=== PATIENT | female | born 1990 | race Hispanic/Latino ===

== ENCOUNTER 2019-01-19 06:14 | Emergency (ER) | payer OTHER ==
[2019-01-19 06:23] VITALS: BMI 221.2
[2019-01-19 06:39] VITALS: PULSE 76; RESP 18; O2SAT 100
[2019-01-19] MEDS ORDERED: Sodium Chloride 0.9% 1,000 ML IV STA (07:28)
--- NOTE | 2019-01-19 07:30 | ED PDOC ---
HPI: Abdomen Time Seen by Provider: 01/19/19 07:07 Chief Complaint (Nursing): Abdominal Pain Chief Complaint (Provider): Abdominal pain History Per: Patient History/Exam Limitations: no limitations Onset/Duration Of Symptoms: Days Outside of [place] travel?: No Current Symptoms Are (Timing): Still Present Location Of Pain/Discomfort: Diffuse, RLQ Quality Of Discomfort: Dull, "Pain" Associated Symptoms: denies: Fever, Chills, Nausea, Vomiting, Diarrhea, Urinary Symptoms Additional Complaint(s): 28yo female, otherwise well, comes to ER reporting abdominal pain x 3 days, i nitially bearable but now has become worse. She reports the pain is dull, constant and unchanged with movement/position. Patient denies any associated fever, chills, vomiting, diarrhea, urinary symptoms, vaginal bleeding, or other complaints. No medications taken for symptoms. PMD: In [facility] Last Menstral Period: Has IUD Past Medical History Reviewed: Historical Data, Nursing Documentation, Vital Signs Vital Signs: Last Vital Signs Temp 97.6 F 01/19/19 06:23 Pulse 76 01/19/19 06:23 Resp 18 01/19/19 06:23 BP 124/54 L 01/19/19 06:23 Pulse Ox 100 01/19/19 06:23 - Medical History PMH: No Chronic Diseases - Surgical History Surgical History: No Surg Hx - Family History Family History: States: No Known Family Hx - Home Medications Home Medications: Ambulatory Orders Medication Instructions Recorded Naproxen [Naprosyn] 500 mg PO BID PRN #15 tablet 01/19/19 - Allergies Allergies/Adverse Reactions: Allergies Allergy/AdvReac Type Severity Reaction Status Date / Time No Known Allergies Allergy Verified 01/19/19 06:23 Review of Systems ROS Statement: Except As Marked, All Systems Reviewed And Found Negative Constitutional: Negative for: Fever, Chills Gastrointestinal: Positive for: Abdominal Pain. Negative for: Nausea, Vomiting, Diarrhea Genitourinary Female: Negative for: Dysuria, Frequency, Hematuria, Vaginal Discharge, Vaginal Bleeding Physical Exam - Reviewed Nursing Documentation Reviewed: Yes Vital Signs Reviewed: Yes - Physical Exam Appears: Positive for: Non-toxic, No Acute Distress Head Exam: Positive for: ATRAUMATIC, NORMAL INSPECTION, NORMOCEPHALIC Skin: Positive for: Normal Color Eye Exam: Positive for: Normal appearance Neck: Positive for: Supple Cardiovascular/Chest: Positive for: Regular Rate, Rhythm. Negative for: Tachycardia Respiratory: Positive for: Normal Breath Sounds. Negative for: Respiratory Dis tress Gastrointestinal/Abdominal: Positive for: Soft, Tenderness (right lower quadrant tenderness). Negative for: Mass, Guarding, Rebound Back: Positive for: Normal Inspection. Negative for: L CVA Tenderness, R CVA Tenderness Extremity: Positive for: Normal ROM Neurological/Psych: Positive for: Awake, Alert, Normal Tone - Laboratory Results Result Diagrams: 01/19/19 07:49 01/19/19 07:49 - ECG O2 Sat by Pulse Oximetry: 100 (RA) Pulse Ox Interpretation: Normal Medical Decision Making Medical Decision Making: Impression: Abdominal pain, r/o appendicitis vs. ovarian cyst Plan: -- Labs -- Urinalysis -- CT Abdomen/Pelvis 1042 CT Abdomen/Pelvis FINDINGS: LOWER THORAX: Unremarkable. LIVER: Unremarkable. No gross lesion or ductal dilatation. GALLBLADDER AND BILE DUCTS: Unremarkable. PANCREAS: Unremarkable. No gross lesion or ductal dilatation. SPLEEN: Unremarkable. ADRENALS: Unremarkable. No mass. KIDNEYS AND URETERS: Unremarkable. No hydronephrosis. No solid mass. VASCULATURE: Unremarkable. No aortic aneurysm. No aortic atherosclerotic calcification or mural plaque present. BOWEL: Unremarkable. No obstruction. No gross mural thickening. APPENDIX: Not definitely identified. There is a small amount of fluid seen in the most inferior right pericolic gutter. However, this is of limited specificity particularly in light of the presence of fluid in the cul-de-sac as well. PERITONEUM: Minimal fluid in the cul-de-sac and in the inferior right pericolic gutter. No generalized ascites. LYMPH NODES: Unremarkable. No enlarged lymph nodes. BLADDER: Unremarkable. REPRODUCTIVE: Unremarkable uterus. Intrauterine device noted within the uterus. There is a cystic structure in the central posterior pelvis, posterior to the uterus, measuring 5.6 cm in diameter. Likely adnexal cyst. Correlate with pelvic ultrasound examination. BONES: No acute fracture. OTHER FINDINGS: None. IMPRESSION: No evidence of acute appendicitis. 5.6 cm cyst posterior to the uterus, in the midline. Likely adnexal cyst. Correlate with transvaginal pelvic ultrasound examination. Minimal fluid in the cul-de-sac. US transvaginal ordered to r/o adnexal cyst ScribeAttestation: Documented byDeanna Fleming, acting as a scribe for Cyndi Bess MD. Provider ScribeAttestation: All medical record entries made by the Scribe were at my direction and personally dictated by me. I have reviewed the chart and agree that the record accurately reflects my personal performance of the history, physical exam, medical decision making, and the department course for this patient. I have also personally directed, reviewed, and agree with the discharge instructions and disposition. Disposition - Clinical Impression Clinical Impression: Ovarian cyst - Disposition Referrals: Susan Cedillo [Outside] Kev Cedillo DO [Staff Provider] - Disposition: Routine/Home Disposition Time: 13:36 Condition: IMPROVED Prescriptions: Naproxen [Naprosyn] 500 mg PO BID PRN #15 tablet PRN Reason: Pain, Moderate (4-7) Instructions: Ovarian Cysts Forms: [employer] ([place])
[2019-01-19 08:06] LABS: BASO % 0.6 % (0.0-2.0); EOS # 0.2 K/uL (0.0-0.7); EOS % 3.8 % (0.0-4.0); HEMOGLOBIN 10.9 g/dL (12.0-16.0); LYMPH # 1.3 K/uL (1.0-4.3); LYMPH % 29.6 % (20.0-40.0); MEAN CELL VOLUME 91.6 fl (81.0-99.0); MEAN CORPUSCULAR HEMOGLOBIN 30.6 pg (27.0-31.0); MEAN CORPUSCULAR HGB CONC 33.4 g/dL (33.0-37.0); MEAN PLATELET VOLUME 8.5 fl (7.2-11.7); MONO # 0.3 K/uL (0.0-0.8); MONO % 7.7 % (0.0-10.0); NEUT # 2.7 K/uL (1.8-7.0); NEUT % 58.3 % (50.0-75.0); NRBC % 0.1 % (0.0-0.0); RBC 3.56 Mil/uL (3.80-5.20); RED CELL DISTRIBUTION WIDTH 13.1 % (11.5-14.5); WHITE BLOOD COUNT 4.6 K/uL (4.8-10.8)
[2019-01-19 08:08] LABS: PROTHROMBIN TIME 10.9 Seconds (9.8-13.1)
[2019-01-19 08:12] LABS: SQUAMOUS EPITHIAL 2 /hpf (0-5); URINE BACTERIA RARE (<OCC); URINE BILIRUBIN NEGATIVE (NEGATIVE); URINE BLOOD NEGATIVE (NEGATIVE); URINE CLARITY SLIGHTY-CLOUDY (Clear); URINE COLOR STRAW (YELLOW); URINE GLUCOSE (UA) NEG (NEGATIVE); URINE LEUKOCYTE ESTERASE NEG Leu/uL (Negative); URINE PROTEIN NEGATIVE (NEGATIVE); URINE UROBILINOGEN 0.2-1.0 mg/dL (0.2-1.0)
[2019-01-19 08:16] LABS: ALB/GLOB RATIO 1.6 (1.0-2.1); ALBUMIN 4.9 g/dL (3.5-5.0); ALT/SGPT 21 U/L (9-52); AST/SGOT 29 U/L (14-36); BLOOD UREA NITROGEN 16 mg/dl (7-17); CALCIUM 9.7 mg/dL (8.4-10.2); GFR NON-AFRICAN AMERICAN > 60
[2019-01-19] MEDS ORDERED: Sodium Chloride 0.9% 50 ML IV ONE (08:25)
[2019-01-19] MEDS ORDERED: Iohexol 300 100 ML IJ ONE (08:25)
--- NOTE | 2019-01-19 10:32 | CT ---
Date of service: 01/19/2019 PROCEDURE: CT Abdomen and Pelvis with contrast HISTORY: RLQ pain COMPARISON: None. TECHNIQUE: Contrast dose: 95 cc Omnipaque 300 Radiation dose: Total exam DLP = 374.09 mGy-cm. This CT exam was performed using one or more of the following dose reduction techniques: Automated exposure control, adjustment of the mA and/or kV according to patient size, and/or use of iterative reconstruction technique. FINDINGS: LOWER THORAX: Unremarkable. LIVER: Unremarkable. No gross lesion or ductal dilatation. GALLBLADDER AND BILE DUCTS: Unremarkable. PANCREAS: Unremarkable. No gross lesion or ductal dilatation. SPLEEN: Unremarkable. ADRENALS: Unremarkable. No mass. KIDNEYS AND URETERS: Unremarkable. No hydronephrosis. No solid mass. VASCULATURE: Unremarkable. No aortic aneurysm. No aortic atherosclerotic calcification or mural plaque present. BOWEL: Unremarkable. No obstruction. No gross mural thickening. APPENDIX: Not definitely identified. There is a small amount of fluid seen in the most inferior right pericolic gutter. However, this is of limited specificity particularly in light of the presence of fluid in the cul-de-sac as well. PERITONEUM: Minimal fluid in the cul-de-sac and in the inferior right pericolic gutter. No generalized ascites. LYMPH NODES: Unremarkable. No enlarged lymph nodes. BLADDER: Unremarkable. REPRODUCTIVE: Unremarkable uterus. Intrauterine device noted within the uterus. There is a cystic structure in the central posterior pelvis, posterior to the uterus, measuring 5.6 cm in diameter. Likely adnexal cyst. Correlate with pelvic ultrasound examination. BONES: No acute fracture. OTHER FINDINGS: None. IMPRESSION: No evidence of acute appendicitis. 5.6 cm cyst posterior to the uterus, in the midline. Likely adnexal cyst. Correlate with transvaginal pelvic ultrasound examination. Minimal fluid in the cul-de-sac.
--- NOTE | 2019-01-19 13:05 | US ---
Date of service: 01/19/2019 HISTORY: RLQ pain COMPARISON: CT abdomen/pelvis 01/19/2019 TECHNIQUE: Transabdominal and transvaginal FINDINGS: UTERUS: Measures 8.6 x 4.7 x 3.5 cm. Homogeneous echotexture. No discrete mass. ENDOMETRIUM: Measures endometrium measures 4 mm in width. An intrauterine device is seen centrally within the endometrial echo complex. Mm in diameter. CERVIX: No cervical abnormality identified. RIGHT OVARY: Measures 4.3 x 6.6 x 7.0 cm. Complex cystic mass with few internal septations and diffuse low-level echoes, measuring 4.2 x 5.7 x 6.0 cm. Possible hemorrhagic cyst. Less likely endometrioma. Follow-up advised with transvaginal ultrasound examination in 6-12 weeks. Normal flow. LEFT OVARY: Measures 4.2 x 2.3 x 1.8 cm. No solid mass. Normal flow. FREE FLUID: No significant free fluid noted. OTHER FINDINGS: None. IMPRESSION: 6.0 cm complex right ovarian cyst. Possible hemorrhagic cyst versus endometrioma. Recommend follow-up transvaginal pelvic ultrasound examination in 6-12 weeks.
[2019-01-19 13:54] VITALS: BP 107/72; TEMP 97.8
== END 2019-01-19 13:36 | disposition home or self-care (01) ==
LOC: H.ER 06:14
DX: N83.201 Unspecified ovarian cyst, right side (principal)
CPT/HCPCS: 74177; 76830; 80053; 81003; 81025; 85025; 85610; 85730; 96361; 96374; 99284; J7030; Q9967